=== PATIENT | male | born 1940 | race Caucasian/White ===

== ENCOUNTER 2016-02-18 17:18 | Inpatient (IN) | payer MEDICARE, OTHER ==
[2016-02-18] MEDS ORDERED: METHYLPREDNISOLONE 125 MG/2 ML VIAL IV ONE (17:46)
[2016-02-18] MEDS ORDERED: ACETAMINOPHEN 325 MG/TAB TABLET PO ONE (17:46)
[2016-02-18] MEDS ORDERED: Albuterol/Ipratropium Neb 3 ML NEB NEB ONE (17:46)
--- NOTE | 2016-02-18 17:51 | EDPRACDOC ---
- General Information Chief Complaint: Dyspnea/Resp distress Stated Complaint: RESP Time Seen by Provider: 02/18/16 17:31 Information Source: Patient, Shelter, [facility] Mode Of Arrival: Ambulance Allergies/Adverse Reactions: Allergies Allergy/AdvReac Type Severity Reaction Status Date / Time No Known Allergies Allergy Verified 02/18/16 17:59 - History of Present Illness HPI: SHORTNESS OF BREATH ASSOCIATED WITH LOW-GRADE FEVER FOR SEVERAL DAYS AT THE NURSING FACILITY. PROGRESSIVELY GETTING WORSE TODAY REQUIRING EMS TRANSPORT TO THE EMERGENCY DEPARTMENT. - Treatment Prior to ED Arrival Reported Medications/Treatment WEED BURNER Treated With Medication WEED BURNER YES Ibuprofen/Acetaminophen (Dose/ tylenol ?dose at 1600 Time) Solu-Medrol (Dose/Time) 125 mg solumedrol Meds/Treatments Given O2 via Cannula Medications WEED BURNER (Medication/ nebulizer treatments x 4 by EMS (combivent x 1 Dose/Time) and albuterol x 3) EMS Treatment BLS IV Yes Comment wears oxygen at 4 lpm all the time ED Past Medical History - History Reviewed Yes Nurses notes reviewed and agree except as marked - Patient Medical History Cardiac History: Reports: Hypertension, Congestive Heart Failure, Hypercholesterolemia Respiratory History: Reports: COPD (4 L NASAL CANNULA CHRONICALLY) Psychological History: Reports: Anxiety Systemic History: Denies: Cancer, Diabetes - Social Medical History ETOH: None Substance Abuse: None Lives In: [facility] Facility EDM Review of Systems - Review of Systems ROS Negative Except as Marked: Yes All systems reviewed and were negative except as marked ROS Unobtainable: Yes Review of systems cannot be obtained due to the patient's medical condition - Physical Exam Constitutional: Alert, Distress, Restless Oriented to: Person Last recorded Vital Signs: Last Vital Signs Temp 98.5 F 02/18/16 17:34 Pulse 147 H 02/18/16 17:34 Resp 30 H 02/18/16 17:34 BP 91/54 L 02/18/16 17:34 Pulse Ox 95 02/18/16 17:34 Oxygen Pulse Oxygen Saturation 95 O2 Device Nasal Cannula Oxygen Flow Rate 4 Fraction of Inspired Oxygen ( FIO2) - HEENT Head: Normal Nose: No Symptoms Reported Neck: Normal. negative: Edema - Respiratory/Cardiovascular Respiratory: Accessory Muscle Use, Rales, Tachypnea, Other (INCREASED WORK OF BREATHING, SITTING STRAIGHT UPRIGHT, SPEAKS IN BRIEF PHRASES. SIGNIFICANT RESPIRATORY DISTRESS) Cardiovascular: Tachycardia - GI Auscultation: Normal Palpation: Normal Tenderness: Non tender Estrada's Sign: Negative - Musculoskeletal Back: Normal Extremities: Normal, Pedal Pulse (1+ BILATERAL DORSALIS PEDIS). negative: Pedal Edema - Integumentary Skin: Warm, Diaphoretic - Neurologic Motor Function: Other (GROSSLY MOVES ALL 4 EXTREMITIES) Mood Description: Anxious Thought: negative: Coherent ED SOB MDM - Re-evaluation Re-evaluation 3 Re-evaluation Time: 19:24 (IMPROVED, OFF BI[PAP, ABLE TO SPEAK FULL SENTENCES) - Results Result Diagrams: 02/18/16 18:25 02/18/16 18:25 - EKG EKG #1 EKG Time: 17:55 -: Yes EKG interpreted by me Rate: bpm: 139 [place]: Normal Rhythm: ST Block: None Hypertrophy: None ST: Nonsp - Diagnostic Imaging Chest Image interpreted by: Radiologist Diagnostic Imaging Comments: Patient Name: MILENA ECHAVARRIA LOC: ED : 1940 AGE: 75 Order Date:02/18/16 Date of Service:09/26 Report # [id number] Ord Physician: Amy Ring MD Exam # [id number] Emergency Physician: Amy Ring MD Exam(s): [id number] RAD/DG CHEST PORTABLE CLINICAL DATA: Sepsis. Shortness of breath with fever. Symptoms for days, progressive worsening. EXAM: PORTABLE CHEST 1 VIEW COMPARISON: Radiographs 09/12/2015, chest CT 09/15/2015 FINDINGS: Lungs remain hyperinflated with emphysema. Irregular nodular opacity in the left upper lung zone corresponding to nodules on CT again seen. The heart size and mediastinal contours are unchanged with atherosclerosis of the thoracic aorta. No confluent airspace disease, pleural effusion or pneumothorax. No new nodules are seen radiographically. No pulmonary edema. No acute osseous abnormalities are seen. IMPRESSION: 1. Emphysema and left upper lobe nodule. This is grossly unchanged from prior exam. 2. No evidence of superimposed acute process. Electronically Signed By: Sara Rosen M.D. On: 02/18/2016 18:15 Electronically Signed By: Sara Rosen MD Electronically Signed Date/Time: [id number] Dictate Date/Time: 02/18/16 181 Technologist: Aye Cheema Transcribed By: Boom Transcribed Date/Time: 02/18/161814 ED Critical Care Note - Critical Care Note Total Time (mins): 35 Comments: Due to the presence of and / or the risk of deterioration, my attendance to this patient required critical care time, including assessment/reassessment, documentation, ordering and interpreting ancillary studies, discussion with ED staff and consultants,patient and family, and excludes time spent on separately billable procedures. - Departure Disposition: Admit IP To This Hospital Condition: Stable Final Diagnosis: COPD with acute lower respiratory infection, Respiratory distress Instructions: COPD (Chronic Obstructive Pulmonary Disease) (ED) Education/Counseling Given To: Patient Education/Counseling Given Regarding: Diagnosis, Treatment, Prognosis Referrals: Iker Lacey MD [Primary Care Provider] - As Needed Decision to Admit Time: 19:24 Decision to admit date: 02/18/16 Decision to admit: from ED - Physician Consulted Hospitalist Time Called: 19:17 Provider Called: Roman Villafana Time Bilingual Speech Language Pathologist Returned Call: 19:23
[2016-02-18 18:03] LABS: ALLEN'S TEST PASS; BEb -0.2 (+/- 2); TCO2 27.3 MMOL/L (23-27)
[2016-02-18 18:04] LABS: ABG Draw Site Left Radial
--- NOTE | 2016-02-18 18:17 | DIRPT ---
CLINICAL DATA: Sepsis. Shortness of breath with fever. Symptoms for days, progressive worsening. EXAM: PORTABLE CHEST 1 VIEW COMPARISON: Radiographs 09/12/2015, chest CT 09/15/2015 FINDINGS: Lungs remain hyperinflated with emphysema. Irregular nodular opacity in the left upper lung zone corresponding to nodules on CT again seen. The heart size and mediastinal contours are unchanged with atherosclerosis of the thoracic aorta. No confluent airspace disease, pleural effusion or pneumothorax. No new nodules are seen radiographically. No pulmonary edema. No acute osseous abnormalities are seen. IMPRESSION: 1. Emphysema and left upper lobe nodule. This is grossly unchanged from prior exam. 2. No evidence of superimposed acute process. Electronically Signed By: Sara Rosen M.D. On: 02/18/2016 18:15
[2016-02-18 18:38] LABS: AUTOMATED BASOPHIL 1.1 % (0-2); AUTOMATED EOSINOPHIL 0.4 % (0-5); AUTOMATED LYMPH 11.7 % (17-44); AUTOMATED MONOCYTE 6.3 % (3-10); AUTOMATED NEUTROPHIL 80.5 % (45-76); MPV 7.8 fL (7.4-10.4)
[2016-02-18 18:48] LABS: BLOOD UREA NITROGEN 19 MG/DL (9-20); CALC CORRECTED 9.5 MG/DL (8.4-10.2); CALCIUM 9.3 MG/DL (8.4-10.2); CALCULATED OSMOLALITY 282 MOs/Kg (270-290); CHLORIDE 105 mEq/L (98-107); GLUCOSE 183 MG/DL (70-99); PT-INR 1.3; SODIUM LEVEL 143 mEq/L (137-146); TOTAL PROTEIN 7.5 G/DL (6.3-8.2)
[2016-02-18] MEDS ORDERED: LORAZEPAM 2 MG/ML VIAL IV ONE (18:48)
[2016-02-18 19:10] LABS: CPK TOTAL WITH POSSIBLE MB 70 IU/L (55-170)
[2016-02-18] MEDS ORDERED: Levofloxacin 750 mg/150 ml D5W 750 MG/150 ML RTU IV ONE (19:17)
[2016-02-18] MEDS ORDERED: DEXTROSE 25 GM/50 ML PFS IV PRN (19:40)
[2016-02-18] MEDS ORDERED: GLUCOSE (ORAL GEL) 15 GM TUBE PO PRN (19:40)
[2016-02-18] MEDS ORDERED: TUSSIONEX 5 ML ORAL SYRINGE PO PRN (19:40)
[2016-02-18] MEDS ORDERED: ONDANSETRON HCL 4 MG/2 ML VIAL IV PRN (19:40)
[2016-02-18] MEDS ORDERED: PROMETHAZINE 25 MG/ML VIAL IV PRN (19:40)
[2016-02-18] MEDS ORDERED: ALBUTEROL 0.083% 3 ML NEB NEB PRN (19:40)
[2016-02-18] MEDS ORDERED: SENNA CONCENTRATE TAB PO PRN (19:40)
[2016-02-18] MEDS ORDERED: ACETAMINOPHEN 325 MG SUPP PR PRN (19:40)
[2016-02-18] MEDS ORDERED: GLUCAGON 1 MG VIAL SQ PRN (19:40)
[2016-02-18] MEDS ORDERED: BISACODYL 10 MG SUPP PR PRN (19:40)
--- NOTE | 2016-02-18 19:40 | HISTPHYS ---
- Chief Complaint Increased shortness breath with low-grade fever over the past several days at [facility]. - History of Present Illness Patient is an interesting 75-year-old white male who was hospitalized [facility] about 6 weeks ago for COPD exacerbation and was too weak to go home so was sent to [facility] to help him recuperate. He indicates that he became more short of breath over the past 3 days at that facility with increased cough and congestion in his chest. He uses O2 at a rate of 4 liters/ minute continuously. Apparently he is taking Eliquis but he is not sure why. He has a history of diabetes mellitus COPD/emphysema from tobacco abuse congestive heart failure which appears to be diastolic in nature hypercholesterolemia and sciatica. He indicates that he is not enjoying [facility] the [facility]. We discussed code status and indicated to me that he wanted DNR status and specifically not to do chest compressions or put him on life support. - Medical History Cardiac History: Reports: Hypertension, Congestive Heart Failure, Hypercholesterolemia Respiratory History: Reports: COPD (4 L NASAL CANNULA CHRONICALLY) GI/ History: Reports: No Significant History Systemic History: Denies: Cancer, Diabetes Neurological History: Reports: No Significant History Psychological History: Reports: Anxiety - Surgical History Reports: Other (Skin cancer on chest and bilateral lens implants) - Medictions/Allergies Allergies No Known Allergies Allergy (Verified 02/18/16 17:59) Current Medication List: Reviewed - Family History Reports: Cardiac Disorders (Both parents of MIs) - Social History Travel Outside of [place] in the Last 3 Months?: No Lives: in [facility]NF ([facility] Dr. Dunham when discharged Dr. Bravo) Smoking Status: Former smoker (Claims to quit smoking 6.5 years ago) Social History: Denies: Alcohol Use, Substance Use Disorder - Review of Systems Constitutional: Chills, Fever, Fatigue, Weakness Eyes: No Symptoms Reported (No blurry vision, visual changes, eye pain, or eye redness.) Ears: No Symptoms Reported (No ear pain or discharge) Nose: No Symptoms Reported (No nasal discharge/congestion or bleeding) Mouth: No Symptoms Reported (No oropharyngeal lesions or erythema) Throat/Neck: No Symptoms Reported (No throat pain or swelling.No oropharyngeal lesions or erythema.) Respiratory: Cough (Past 3 nights), Shortness of Breath (Past 3 nights), Wheezing, Other (History COPD/emphysema) Cardiovascular: No Symptoms Reported (No chest pain or palpitations.) Gastrointestinal: No Symptoms Reported (No abdominal pain, nausea, vomiting, diarrhea, constipation, or bloody stool.) Genitourinary: No Symptoms Reported (No dysuria or hematuria.) Neurological: Weakness Musculoskeletal:: Chronic low back pain, Arthritis Integumentary: Other (Multiple skin cancers removed in the past) Allergic/Immunologic: No Symptoms Reported (no rashes or lesions) Hematologic: No Symptoms Reported (No chronic anemia, bleeding, or easy bruising.), Other (Lymphatics- no lymph node swelling or pain.) Endocrine: Diabetes Psychiatric: Depression - Physical Exam Vital Signs: Initial Vitals Temperature 98.5 F 02/18/16 17:34 Pulse Rate 147 H 02/18/16 17:34 Respiratory Rate 30 H 02/18/16 17:34 Blood Pressure 91/54 L 02/18/16 17:34 Pulse Oxygen Saturation 95 02/18/16 17:34 Constitutional: Alert (Awake, Fully oriented. Normal and appropriate affect.Well appearing. Well nourished.), No apparent distress Oriented to: Person, Place - HEENT Head: Normal (normocephalic, atraumatic.), Other (No cervical lymphadenopathy. No supraclavicular lymphadenopathy. Neck: No palpable mass, supple , trachea midline.) Eye: Normal (pupils equal, reactive to light, and round; EOMI, Sclera white) Oropharynx: Normal (Pharynx: Moist without exudate,Gums-no swelling, No oropharyngeal lesions or erythema, Mucous membranes are dry.) ENT EAC: Normal (No oropharyngeal lesions or erythema. Mucous membranes are dry. ) TMJ: Normal Nose: No Symptoms Reported (septum midline, Nares patent, without discharge or bleeding.) Respiratory: Normal - CTA (Clear to auscultation bilaterally. No wheezing, rales , rhonchi. Chest wall movements are symmetric. No use of accessory muscles to breathe.) Cardiovascular: Normal (RRR , Normal S1, S2. No murmurs, rubs, or gallops. PMI non-displaced. Carotids: no carotid bruits. No bradycardia or tachycardia. DP pulses 2+ bilaterally.) - GI Auscultation: Normal (normal active sounds) Palpation: Normal (Soft,non distended,nontender. No hepatosplenomegaly.) Tenderness: Non tender (No rebound or guarding) Estrada's Sign: Negative - Musculoskeletal Back: Normal (Non-Tender) Extremities: Normal (Normal tone, DP pulses 2+ bilaterally, No cyanosis or edema bilaterally, FROM bilaterally.) Spine: non-tender, normal alignment, other (Mildly kyphotic) - Integumentary Skin: Other (Scarring of the mid sternal region from previous skin cancer surgery) Lymphatics: Normal (No cervical lymphadenopathy. No supraclavicular lymphadenopathy.) - Neurologic Memory Impaired: Normal Motor Function: Normal (Motor 5/5 throughout.Normal tone, Pulses 2+ No cyanosis or edema, FROM) Cranial Nerve: Normal (CN II-XII intact sensation, strength 5/5) Cerebellar: negative: Ataxia, Past-Pointing, Tremor Mood Description: Normal (Fully oriented. Normal and appropriate affect.) Thought: Coherent Perception: Normal - Focused CV Perfusion Exam Vital Signs: Last Vital Signs Temp 98.5 F 02/18/16 17:34 Pulse 147 H 02/18/16 17:34 Resp 32 H 02/18/16 18:09 BP 91/54 L 02/18/16 17:34 Pulse Ox 94 02/18/16 18:09 - Lab Results 02/18/16 18:25 02/18/16 18:25 Laboratory Results - last 24 hr 02/18/16 02/18/16 02/18/16 17:55 18:25 18:25 WBC RBC Hgb Hct MCV MCH MCHC RDW Plt Count MPV Neut % (Auto) Lymph % (Auto) [place] % (Auto) Eos % (Auto) Baso % (Auto) Absolute Neuts (auto) Absolute Lymphs (auto) PT INR APTT Puncture Site Left radial pH 7.350 pCO2 47.0 H pO2 71.0 L HCO3 25.9 Total CO2 27.3 H Base Excess -0.2 FiO2 % 4 lpm Specimen Drawn By Stana Sodium 143 Potassium 4.5 Chloride 105 Carbon Dioxide 26 Anion Gap 17 H BUN 19 Creatinine 1.10 Estimated GFR (MDRD) > 60 Glucose 183 H Hemoglobin A1c Calculated Osmolality 282 Lactic Acid 1.5 Calcium 9.3 Corrected Calcium 9.5 Total Bilirubin 1.2 AST 23 ALT 25 Alkaline Phosphatase 135 Creatine Kinase 70 Troponin I 0.29 [id number]-Dchyhemqwbr Pept 1550 H Total Protein 7.5 Albumin 3.8 TSH Urine Color Urine Clarity Urine pH Ur Specific [place] Urine Protein Urine Glucose (UA) Urine Ketones Urine Occult Blood Urine Nitrite Urine Bilirubin Urine Urobilinogen Ur Leukocyte Esterase Urine RBC Urine WBC Ur Epithelial Cells Urine Bacteria Hyaline Casts Urine Mucus 02/18/16 02/18/16 02/18/16 18:25 18:25 18:25 WBC 12.3 H RBC 4.38 L Hgb 12.4 L Hct 38.2 L MCV 87 MCH 28.4 MCHC 32.6 L RDW 15.2 H Plt Count 376 MPV 7.8 Neut % (Auto) 80.5 H Lymph % (Auto) 11.7 L [place] % (Auto) 6.3 Eos % (Auto) 0.4 Baso % (Auto) 1.1 Absolute Neuts (auto) 9.84 H Absolute Lymphs (auto) 1.35 PT 13.2 H INR 1.3 APTT 42.0 H Puncture Site pH pCO2 pO2 HCO3 Total CO2 Base Excess FiO2 % Specimen Drawn By Sodium Potassium Chloride Carbon Dioxide Anion Gap BUN Creatinine Estimated GFR (MDRD) Glucose Hemoglobin A1c 6.1 H Calculated Osmolality Lactic Acid Calcium Corrected Calcium Total Bilirubin AST ALT Alkaline Phosphatase Creatine Kinase Troponin I [id number] Pept Total Protein Albumin TSH Urine Color Urine Clarity Urine pH Ur Specific [place] Urine Protein Urine Glucose (UA) Urine Ketones Urine Occult Blood Urine Nitrite Urine Bilirubin Urine Urobilinogen Ur Leukocyte Esterase Urine RBC Urine WBC Ur Epithelial Cells Urine Bacteria Hyaline Casts Urine Mucus 02/18/16 02/18/16 02/18/16 18:25 21:30 23:50 WBC RBC Hgb Hct MCV MCH MCHC RDW Plt Count MPV Neut % (Auto) Lymph % (Auto) [place] % (Auto) Eos % (Auto) Baso % (Auto) Absolute Neuts (auto) Absolute Lymphs (auto) PT INR APTT Puncture Site pH pCO2 pO2 HCO3 Total CO2 Base Excess FiO2 % Specimen Drawn By Sodium Potassium Chloride Carbon Dioxide Anion Gap BUN Creatinine Estimated GFR (MDRD) Glucose Hemoglobin A1c Calculated Osmolality Lactic Acid Calcium Corrected Calcium Total Bilirubin AST ALT Alkaline Phosphatase Creatine Kinase Troponin I 0.27 [id number]-Svvyjouzyey Pept Total Protein Albumin TSH 0.49 L Urine Color Shandra Urine Clarity Sl cldy Urine pH 6.0 Ur Specific [place] >/=1.035 Urine Protein 2+ H Urine Glucose (UA) 1+ Urine Ketones 1+ H Urine Occult Blood Neg Urine Nitrite Neg Urine Bilirubin Neg Urine Urobilinogen 2 H Ur Leukocyte Esterase Neg Urine RBC 5-10 H Urine WBC 5-10 H Ur Epithelial Cells Occ Urine Bacteria Few Hyaline Casts Tntc H Urine Mucus Large - Assessment (1) COPD with acute lower respiratory infection J44.0 - CHRONIC OBSTRUCTIVE PULMON DISEASE W ACUTE LOWER RESP INFCT Acute Present on Admission: Yes (2) Diastolic CHF I50.30 - UNSPECIFIED DIASTOLIC (CONGESTIVE) HEART FAILURE Acute Present on Admission: Yes Qualifiers: Congestive heart failure chronicity: chronic Qualified Code(s): I50.32 - Chronic diastolic (congestive) heart failure (3) Diabetes mellitus E11.9 - TYPE 2 DIABETES MELLITUS WITHOUT COMPLICATIONS Chronic Present on Admission: Yes Qualifiers: Diabetes mellitus type: type 2 Diabetes mellitus complication status: without complication Diabetes mellitus snf insulin use: without snf use Qualified Code(s): E11.9 - Type 2 diabetes mellitus without complications Sliding scale insulin therapy glycohemoglobin is 6.1 and urine microalbumin is pending. (4) Emphysema lung J43.9 - EMPHYSEMA, UNSPECIFIED Acute Present on Admission: Yes Qualifiers: Emphysema type: centrilobular Qualified Code(s): J43.2 - Centrilobular emphysema (5) On anticoagulant therapy Z79.01 - SECURITIES ADVISER (CURRENT) USE OF ANTICOAGULANTS Acute Present on Admission: Yes Patient presently taking Eliquis and is and sinus rhythm. Need his old records he is unable to tell me why he is taking the anticoagulant. Case Care Discussed with: Patient, Nursing Staff Total Time: 63 min Critical Care: No Code: [id number]
[2016-02-18] MEDS ORDERED: ENOXAPARIN 40 MG/0.4 ML PFS SQ SCH (20:00)
[2016-02-18] MEDS ORDERED: NS/KCl 20 mEq 1,000 ML IV SCH (20:00)
[2016-02-18] MEDS: Albuterol/Ipratropium Neb 3 ML NEB NEB SCH (20:07)
[2016-02-18 21:09] VITALS: BMI 24.0
[2016-02-18] MEDS: CEFTRIAXONE 1 GM in D5W 100 ML IV SCH (21:13)
[2016-02-18] MEDS: PROBIOTIC BLEND TAB PO SCH (21:14)
[2016-02-18] MEDS: METHYLPREDNISOLONE 125 MG/2 ML VIAL IV SCH (21:14)
[2016-02-18] MEDS: BENZONATATE 100 MG PERLES PO SCH ×2 (21:14→21:19)
[2016-02-18] MEDS ORDERED: CHAPSTICK LIP BALM ONE (21:34)
[2016-02-18] MEDS ORDERED: Vaccine Screening Complete SCH (23:00)
[2016-02-18] MEDS: AZITHROMYCIN 500 MG in D5W 250 ML IV SCH (23:01)
[2016-02-18] MEDS ORDERED: LORAZEPAM 2 MG/ML VIAL IV PRN (23:15)
[2016-02-18] MEDS: LORAZEPAM 2 MG/ML VIAL IV PRN (23:47)
[2016-02-19 00:47] LABS: LEUKOCYTES/URINE NEG (NEGATIVE); NITRITE/URINE NEG (NEGATIVE); URINE OCCULT BLOOD NEG (NEG/TRACE)
[2016-02-19] MEDS: Albuterol/Ipratropium Neb 3 ML NEB NEB SCH ×4 (01:35→19:56)
[2016-02-19] MEDS: METHYLPREDNISOLONE 125 MG/2 ML VIAL IV SCH ×4 (01:54→19:38)
[2016-02-19] MEDS: TEMAZEPAM 15 MG CAP PO PRN ×3 (01:54→21:51)
[2016-02-19] MEDS ORDERED: GUAIFENESIN 200 MG/10 ML UDC PO PRN (02:55)
[2016-02-19] MEDS ORDERED: NITROGLYCERINE 0.4 MG TAB SL PRN (02:55)
[2016-02-19] MEDS ORDERED: Docusate Sodium 100 MG CAP PO PRN (02:55)
[2016-02-19 04:22] LABS: ABG Draw Site Right Radial; ALLEN'S TEST PASS; BEb 3.4 (+/- 2); TCO2 29.9 MMOL/L (23-27)
[2016-02-19 04:44] LABS: AUTOMATED BASOPHIL 0.3 % (0-2); AUTOMATED LYMPH 6.9 % (17-44); AUTOMATED MONOCYTE 3.9 % (3-10); AUTOMATED NEUTROPHIL 88.9 % (45-76); MPV 8.1 fL (7.4-10.4)
[2016-02-19 04:59] LABS: BLOOD UREA NITROGEN 20 MG/DL (9-20); CALCIUM 9.2 MG/DL (8.4-10.2); CALCULATED OSMOLALITY 279 MOs/Kg (270-290); CHLORIDE 101 mEq/L (98-107); GLUCOSE 194 MG/DL (70-99); SODIUM LEVEL 141 mEq/L (137-146)
[2016-02-19] MEDS: LORAZEPAM 2 MG/ML VIAL IV PRN (05:02)
[2016-02-19] MEDS: BENZONATATE 100 MG PERLES PO SCH ×3 (05:02→19:37)
[2016-02-19] MEDS: REGULAR INSULIN 100 UNITS/ML - 3 ML VIAL SQ SCH ×2 (06:40→17:52)
[2016-02-19] MEDS: ATORVASTATIN 40 MG TAB PO SCH (07:54)
[2016-02-19] MEDS: BISACODYL 10 MG SUPP PR SCH (07:59)
[2016-02-19] MEDS: BUDESONIDE 0.5 MG NEB NEB SCH ×2 (08:17→20:01)
[2016-02-19] MEDS: NS 500 ML IV ONE ×2 (08:20→09:09)
[2016-02-19] MEDS ORDERED: [UNRECOGNIZED DRUG - OTHER] IH SCH (09:00)
[2016-02-19] MEDS: ACETAMINOPHEN 325 MG/TAB TABLET PO PRN ×2 (09:08→21:51)
[2016-02-19] MEDS ORDERED: NS 1,000 ML IV ONE (12:00)
[2016-02-19] MEDS: PROBIOTIC BLEND TAB PO SCH ×2 (13:46→18:05)
[2016-02-19] MEDS: ALPRAZOLAM 0.5 MG TAB PO PRN (15:28)
--- NOTE | 2016-02-19 17:49 | GENMEDPROG ---
Chief Complaint: Hypotensive. Says breathing is a little bit better but still labored. Denies pain at present Notes Reviewed: Yes Events from last night noted and discussed with Clinical Staff Current Medication List: Reviewed Currently: Reports: Cough, Wheezing, MENDEZ, SOB. Denies: Nausea and Vomiting, Abdominal Pain, Chest Pain DVT Prophylaxis: Yes - Physical Examination Vital Signs and I&O: Last Vital Signs Temp 97.5 F 02/19/16 15:33 Pulse 113 02/19/16 15:33 Resp 18 02/19/16 15:33 BP 92/62 L 02/19/16 15:33 Pulse Ox 91 02/19/16 15:33 Oxygen Pulse Oxygen Saturation 91 O2 Device Nasal Cannula Oxygen Flow Rate 2.5 Fraction of Inspired Oxygen ( FIO2) Intake & Output 02/16/16 02/17/16 02/18/16 02/19/16 23:59 23:59 23:59 23:59 Intake Total 100 530 Output Total 550 Balance 100 -20 Patient's weight 71.894 kg 71.894 kg General: Alert, Oriented x3, Cooperative, Moderate distress. negative: Well appearing (Severely ill appearing) HEENT: Normal, PERRLA, EOMI, Anicteric Sclera Neck: Non-tender, Full range of motion, Normal Trachea alignment. negative: JVD Lymphatics: Normal (No cervical lymphadenopathy. No supraclavicular lymphadenopathy.). negative: Adenopathy Respiratory: Normal - CTA (Clear to auscultation bilaterally. No wheezing, rales , rhonchi. Chest wall movements are symmetric. No use of accessory muscles to breathe.), Diminished, Rales, Rhonchi, Wheezes Cardiovascular: Regular rate and rhythm, No Gallops,Rubs/Murmurs GI: Normal bowel sounds, Soft, Non tender, No hepatospenomegaly, No masses Extremities/Musculoskeletal: Normal pulses. negative: Tenderness, Swelling, Edema Skin: Warm,Dry and Intact, No rashes, No breakdown, No significant lesion Neurological: Normal speech, Strength at 5/5 X4 ext, Normal tone, Cranial nerves 3-12 NL Psych/Mental Status: Appropriate, Cooperative. negative: Normal Affect (Odd) Lab/DI/Studies Reviewed: Laboratory Results - last 24 hr 02/18/16 02/18/16 02/18/16 17:55 18:25 18:25 WBC RBC Hgb Hct MCV MCH MCHC RDW Plt Count MPV Neut % (Auto) Lymph % (Auto) [place] % (Auto) Eos % (Auto) Baso % (Auto) Absolute Neuts (auto) Absolute Lymphs (auto) PT INR APTT Puncture Site Left radial pH 7.350 pCO2 47.0 H pO2 71.0 L HCO3 25.9 Total CO2 27.3 H Base Excess -0.2 FiO2 % 4 lpm Specimen Drawn By Stana Sodium 143 Potassium 4.5 Chloride 105 Carbon Dioxide 26 Anion Gap 17 H BUN 19 Creatinine 1.10 Estimated GFR (MDRD) > 60 Glucose 183 H POC Capillary Glucose Hemoglobin A1c Calculated Osmolality 282 Lactic Acid 1.5 Calcium 9.3 Corrected Calcium 9.5 Total Bilirubin 1.2 AST 23 ALT 25 Alkaline Phosphatase 135 Creatine Kinase 70 Troponin I 0.29 Ttl-B-Jonnicamucs Pept 1550 H Total Protein 7.5 Albumin 3.8 TSH Urine Color Urine Clarity Urine pH Ur Specific [place] Urine Protein Urine Glucose (UA) Urine Ketones Urine Occult Blood Urine Nitrite Urine Bilirubin Urine Urobilinogen Ur Leukocyte Esterase Urine RBC Urine WBC Ur Epithelial Cells Urine Bacteria Hyaline Casts Urine Mucus 02/18/16 02/18/16 02/18/16 18:25 18:25 18:25 WBC 12.3 H RBC 4.38 L Hgb 12.4 L Hct 38.2 L MCV 87 MCH 28.4 MCHC 32.6 L RDW 15.2 H Plt Count 376 MPV 7.8 Neut % (Auto) 80.5 H Lymph % (Auto) 11.7 L [place] % (Auto) 6.3 Eos % (Auto) 0.4 Baso % (Auto) 1.1 Absolute Neuts (auto) 9.84 H Absolute Lymphs (auto) 1.35 PT 13.2 H INR 1.3 APTT 42.0 H Puncture Site pH pCO2 pO2 HCO3 Total CO2 Base Excess FiO2 % Specimen Drawn By Sodium Potassium Chloride Carbon Dioxide Anion Gap BUN Creatinine Estimated GFR (MDRD) Glucose POC Capillary Glucose Hemoglobin A1c 6.1 H Calculated Osmolality Lactic Acid Calcium Corrected Calcium Total Bilirubin AST ALT Alkaline Phosphatase Creatine Kinase Troponin I Vvy-W-Thshkpkrhxc Pept Total Protein Albumin TSH Urine Color Urine Clarity Urine pH Ur Specific [place] Urine Protein Urine Glucose (UA) Urine Ketones Urine Occult Blood Urine Nitrite Urine Bilirubin Urine Urobilinogen Ur Leukocyte Esterase Urine RBC Urine WBC Ur Epithelial Cells Urine Bacteria Hyaline Casts Urine Mucus 02/18/16 02/18/16 02/18/16 18:25 21:30 23:50 WBC RBC Hgb Hct MCV MCH MCHC RDW Plt Count MPV Neut % (Auto) Lymph % (Auto) [place] % (Auto) Eos % (Auto) Baso % (Auto) Absolute Neuts (auto) Absolute Lymphs (auto) PT INR APTT Puncture Site pH pCO2 pO2 HCO3 Total CO2 Base Excess FiO2 % Specimen Drawn By Sodium Potassium Chloride Carbon Dioxide Anion Gap BUN Creatinine Estimated GFR (MDRD) Glucose POC Capillary Glucose Hemoglobin A1c Calculated Osmolality Lactic Acid Calcium Corrected Calcium Total Bilirubin AST ALT Alkaline Phosphatase Creatine Kinase Troponin I 0.27 Qzb-L-Jlryeunxdhv Pept Total Protein Albumin TSH 0.49 L Urine Color Shandra Urine Clarity Sl cldy Urine pH 6.0 Ur Specific [place] >/=1.035 Urine Protein 2+ H Urine Glucose (UA) 1+ Urine Ketones 1+ H Urine Occult Blood Neg Urine Nitrite Neg Urine Bilirubin Neg Urine Urobilinogen 2 H Ur Leukocyte Esterase Neg Urine RBC 5-10 H Urine WBC 5-10 H Ur Epithelial Cells Occ Urine Bacteria Few Hyaline Casts Tntc H Urine Mucus Large 02/19/16 02/19/16 02/19/16 04:05 04:05 04:15 WBC 9.0 RBC 4.08 L Hgb 11.4 L Hct 35.3 L MCV 87 MCH 28.1 MCHC 32.4 L RDW 15.2 H Plt Count 328 MPV 8.1 Neut % (Auto) 88.9 H Lymph % (Auto) 6.9 L [place] % (Auto) 3.9 Eos % (Auto) 0.0 Baso % (Auto) 0.3 Absolute Neuts (auto) 7.92 Absolute Lymphs (auto) 0.54 L PT INR APTT Puncture Site Right radial pH 7.420 pCO2 44.0 pO2 83.0 HCO3 28.5 H Total CO2 29.9 H Base Excess 3.4 H FiO2 % 3l nc Specimen Drawn By Baras Sodium 141 Potassium 4.5 Chloride 101 Carbon Dioxide 29 Anion Gap 16 BUN 20 Creatinine 1.00 Estimated GFR (MDRD) > 60 Glucose 194 H POC Capillary Glucose Hemoglobin A1c Calculated Osmolality 279 Lactic Acid Calcium 9.2 Corrected Calcium Total Bilirubin AST ALT Alkaline Phosphatase Creatine Kinase Troponin I Rzl-K-Ckqakhyquwe Pept Total Protein Albumin TSH Urine Color Urine Clarity Urine pH Ur Specific [place] Urine Protein Urine Glucose (UA) Urine Ketones Urine Occult Blood Urine Nitrite Urine Bilirubin Urine Urobilinogen Ur Leukocyte Esterase Urine RBC Urine WBC Ur Epithelial Cells Urine Bacteria Hyaline Casts Urine Mucus 02/19/16 02/19/16 05:54 08:01 WBC RBC Hgb Hct MCV MCH MCHC RDW Plt Count MPV Neut % (Auto) Lymph % (Auto) [place] % (Auto) Eos % (Auto) Baso % (Auto) Absolute Neuts (auto) Absolute Lymphs (auto) PT INR APTT Puncture Site pH pCO2 pO2 HCO3 Total CO2 Base Excess FiO2 % Specimen Drawn By Sodium Potassium Chloride Carbon Dioxide Anion Gap BUN Creatinine Estimated GFR (MDRD) Glucose POC Capillary Glucose 166 H 139 H Hemoglobin A1c Calculated Osmolality Lactic Acid Calcium Corrected Calcium Total Bilirubin AST ALT Alkaline Phosphatase Creatine Kinase Troponin I Tqv-O-Auncdrpgcye Pept Total Protein Albumin TSH Urine Color Urine Clarity Urine pH Ur Specific [place] Urine Protein Urine Glucose (UA) Urine Ketones Urine Occult Blood Urine Nitrite Urine Bilirubin Urine Urobilinogen Ur Leukocyte Esterase Urine RBC Urine WBC Ur Epithelial Cells Urine Bacteria Hyaline Casts Urine Mucus - Assessment (1) COPD with acute lower respiratory infection Acute J44.0 - CHRONIC OBSTRUCTIVE PULMON DISEASE W ACUTE LOWER RESP INFCT Comment/Plan: Remains acutely ill. IV steroids, IV antibiotics, nebulizer treatments and pulmonary toilet. (2) Diastolic CHF Acute I50.30 - UNSPECIFIED DIASTOLIC (CONGESTIVE) HEART FAILURE Qualifiers: Congestive heart failure chronicity: chronic Qualified Code(s): I50.32 - Chronic diastolic (congestive) heart failure Comment/Plan: Appears dry currently. He is hypotensive. Hold any blood pressure medicines and gently hydrate. (3) Emphysema lung Acute J43.9 - EMPHYSEMA, UNSPECIFIED Qualifiers: Emphysema type: centrilobular Qualified Code(s): J43.2 - Centrilobular emphysema Comment/Plan: As above for COPD. IV steroids, IV antibiotics and nebulizer treatments. (4) On anticoagulant therapy Acute Z79.01 - RETIREMENT (CURRENT) USE OF ANTICOAGULANTS Comment/Plan: Patient presently taking Eliquis and is and sinus rhythm. Need his old records he is unable to tell me why he is taking the anticoagulant. (5) Diabetes mellitus Chronic E11.9 - TYPE 2 DIABETES MELLITUS WITHOUT COMPLICATIONS Qualifiers: Diabetes mellitus type: type 2 Diabetes mellitus complication status: without complication Diabetes mellitus nursing home insulin use: without terminal superintendent use Qualified Code(s): E11.9 - Type 2 diabetes mellitus without complications Comment/Plan: Accu-Cheks and sliding scale insulin. Case Care Discussed with: Patient, Nursing Staff, Resource Management
[2016-02-19] MEDS: NS/KCl 20 mEq 1,000 ML IV SCH (18:04)
[2016-02-19] MEDS: APIXABAN 5 MG TABLET PO SCH (19:37)
[2016-02-19] MEDS: QUETIAPINE FUMARATE 25 MG TAB PO SCH (19:37)
[2016-02-19] MEDS: CEFTRIAXONE 1 GM in D5W 100 ML IV SCH (19:37)
[2016-02-19] MEDS: AZITHROMYCIN 500 MG in D5W 250 ML IV SCH (21:51)
[2016-02-20] MEDS: Albuterol/Ipratropium Neb 3 ML NEB NEB SCH ×4 (02:21→20:31)
[2016-02-20] MEDS: METHYLPREDNISOLONE 125 MG/2 ML VIAL IV SCH ×5 (02:54→20:03)
[2016-02-20 04:28] LABS: BLOOD UREA NITROGEN 20 MG/DL (9-20); CALCIUM 8.7 MG/DL (8.4-10.2); CALCULATED OSMOLALITY 283 MOs/Kg (270-290); CHLORIDE 111 mEq/L (98-107); GLUCOSE 161 MG/DL (70-99); SODIUM LEVEL 144 mEq/L (137-146)
[2016-02-20 04:40] LABS: AUTOMATED BASOPHIL 0.2 % (0-2); AUTOMATED MONOCYTE 5.1 % (3-10); AUTOMATED NEUTROPHIL 87.7 % (45-76); MPV 8.4 fL (7.4-10.4)
[2016-02-20] MEDS: BENZONATATE 100 MG PERLES PO SCH ×3 (05:25→21:33)
[2016-02-20] MEDS: NS/KCl 20 mEq 1,000 ML IV SCH ×4 (05:25→22:26)
[2016-02-20 05:38] LABS: ALLEN'S TEST PASS; BEb 1.7 (+/- 2); TCO2 28.6 MMOL/L (23-27)
[2016-02-20 05:39] LABS: ABG Draw Site Right Brachial
[2016-02-20] MEDS: REGULAR INSULIN 100 UNITS/ML - 3 ML VIAL SQ SCH ×2 (06:29→17:51)
[2016-02-20] MEDS: APIXABAN 5 MG TABLET PO SCH ×2 (07:55→20:03)
[2016-02-20] MEDS: ATORVASTATIN 40 MG TAB PO SCH (07:56)
[2016-02-20] MEDS: BISACODYL 10 MG SUPP PR SCH (07:57)
[2016-02-20] MEDS: BUDESONIDE 0.5 MG NEB NEB SCH ×2 (08:23→20:33)
[2016-02-20] MEDS: ALPRAZOLAM 0.5 MG TAB PO PRN ×2 (08:45→15:46)
--- NOTE | 2016-02-20 09:45 | GENMEDPROG ---
Chief Complaint: Feels a little better. Remains very weak. Blood pressures have improved some and remained in the mid 90s. Still with tight wheezing on exam Notes Reviewed: Yes Events from last night noted and discussed with Clinical Staff Current Medication List: Reviewed Currently: Reports: Cough, Wheezing, MENDEZ, SOB. Denies: Nausea and Vomiting, Abdominal Pain, Chest Pain DVT Prophylaxis: Yes - Physical Examination Vital Signs and I&O: Last Vital Signs Temp 97.8 F 02/20/16 07:47 Pulse 108 02/20/16 08:45 Resp 18 02/20/16 07:47 BP 95/65 L 02/20/16 07:47 Pulse Ox 94 02/20/16 08:19 Oxygen Pulse Oxygen Saturation 94 O2 Device Nasal Cannula Oxygen Flow Rate 2.5 Fraction of Inspired Oxygen ( FIO2) Intake & Output 02/17/16 02/18/16 02/19/16 02/20/16 23:59 23:59 23:59 23:59 Intake Total 100 2941 1020 Output Total 750 700 Balance 100 2191 320 Patient's weight 71.894 kg 71.894 kg 72.575 kg General: Alert, Oriented x3, Cooperative, Moderate distress. negative: Well appearing (Severely ill appearing) HEENT: Normal, PERRLA, EOMI, Anicteric Sclera Neck: Non-tender, Full range of motion, Normal Trachea alignment. negative: JVD Lymphatics: Normal (No cervical lymphadenopathy. No supraclavicular lymphadenopathy.). negative: Adenopathy Respiratory: Diminished, Rales, Rhonchi, Wheezes Cardiovascular: Regular rate and rhythm, No Gallops,Rubs/Murmurs GI: Normal bowel sounds, Soft, Non tender, No hepatospenomegaly, No masses Extremities/Musculoskeletal: Normal pulses. negative: Tenderness, Swelling, Edema Skin: Warm,Dry and Intact, No rashes, No breakdown, No significant lesion Neurological: Normal speech, Strength at 5/5 X4 ext, Normal tone, Cranial nerves 3-12 NL Psych/Mental Status: Appropriate, Cooperative. negative: Normal Affect (Odd) Lab/DI/Studies Reviewed: Laboratory Results - last 24 hr 02/19/16 02/20/16 02/20/16 08:01 03:50 03:50 WBC 9.7 RBC 3.42 L Hgb 9.8 L D Hct 29.7 L MCV 87 MCH 28.7 MCHC 33.0 RDW 15.4 H Plt Count 313 MPV 8.4 Neut % (Auto) 87.7 H Lymph % (Auto) 7.0 L [place] % (Auto) 5.1 Eos % (Auto) 0.0 Baso % (Auto) 0.2 Absolute Neuts (auto) 8.44 H Absolute Lymphs (auto) 0.68 Puncture Site pH pCO2 pO2 HCO3 Total CO2 Base Excess FiO2 % Specimen Drawn By Sodium 144 Potassium 4.3 Chloride 111 H Carbon Dioxide 27 Anion Gap 10 BUN 20 Creatinine 0.90 Estimated GFR (MDRD) > 60 Glucose 161 H POC Capillary Glucose 139 H Calculated Osmolality 283 Calcium 8.7 02/20/16 02/20/16 05:35 06:17 WBC RBC Hgb Hct MCV MCH MCHC RDW Plt Count MPV Neut % (Auto) Lymph % (Auto) [place] % (Auto) Eos % (Auto) Baso % (Auto) Absolute Neuts (auto) Absolute Lymphs (auto) Puncture Site Right brachial pH 7.390 pCO2 45.0 pO2 87.0 HCO3 27.2 H Total CO2 28.6 H Base Excess 1.7 FiO2 % 3l nc Specimen Drawn By Daniel Sodium Potassium Chloride Carbon Dioxide Anion Gap BUN Creatinine Estimated GFR (MDRD) Glucose POC Capillary Glucose 135 H Calculated Osmolality Calcium - Assessment (1) COPD with acute lower respiratory infection Acute J44.0 - CHRONIC OBSTRUCTIVE PULMON DISEASE W ACUTE LOWER RESP INFCT Comment/Plan: Remains very ill. Still with significant tight wheezing. Continue high-dose IV steroids, IV antibiotics, nebulizer treatments. (2) Diastolic CHF Acute I50.30 - UNSPECIFIED DIASTOLIC (CONGESTIVE) HEART FAILURE Qualifiers: Congestive heart failure chronicity: chronic Qualified Code(s): I50.32 - Chronic diastolic (congestive) heart failure Comment/Plan: Some better. No worsening of respiratory distress with IV fluids so given relative hypotension would continue IV fluids (3) Emphysema lung Acute J43.9 - EMPHYSEMA, UNSPECIFIED Qualifiers: Emphysema type: centrilobular Qualified Code(s): J43.2 - Centrilobular emphysema Comment/Plan: As above for COPD. IV steroids, IV antibiotics and nebulizer treatments. (4) On anticoagulant therapy Acute Z79.01 - [facility] (CURRENT) USE OF ANTICOAGULANTS Comment/Plan: Patient presently taking Eliquis and is and sinus rhythm. Need his old records he is unable to tell me why he is taking the anticoagulant. (5) Diabetes mellitus Chronic E11.9 - TYPE 2 DIABETES MELLITUS WITHOUT COMPLICATIONS Qualifiers: Diabetes mellitus type: type 2 Diabetes mellitus complication status: without complication Diabetes mellitus penitentiary insulin use: without continuous churn buttermaker use Qualified Code(s): E11.9 - Type 2 diabetes mellitus without complications Comment/Plan: Accu-Cheks and sliding scale insulin. Case Care Discussed with: Patient, Nursing Staff, Physical Therapy, Resource Management, Respiratory Therapy, Tool Mechanic
[2016-02-20] MEDS: ACETAMINOPHEN 325 MG/TAB TABLET PO PRN (12:02)
[2016-02-20] MEDS: PROBIOTIC BLEND TAB PO SCH ×2 (12:03→17:51)
[2016-02-20] MEDS: OXYCODONE HCL 5 MG TABLET PO PRN (17:49)
[2016-02-20] MEDS: TEMAZEPAM 15 MG CAP PO PRN (20:03)
[2016-02-20] MEDS: CEFTRIAXONE 1 GM in D5W 100 ML IV SCH (20:03)
[2016-02-20] MEDS: QUETIAPINE FUMARATE 25 MG TAB PO SCH (20:03)
[2016-02-20] MEDS: AZITHROMYCIN 500 MG in D5W 250 ML IV SCH (22:26)
[2016-02-21] MEDS: Albuterol/Ipratropium Neb 3 ML NEB NEB SCH ×4 (02:24→20:21)
[2016-02-21] MEDS: NS/KCl 20 mEq 1,000 ML IV SCH ×2 (02:45→11:43)
[2016-02-21] MEDS: METHYLPREDNISOLONE 125 MG/2 ML VIAL IV SCH ×4 (02:46→23:36)
[2016-02-21 05:26] LABS: MPV 8.2 fL (7.4-10.4)
[2016-02-21 05:34] LABS: BLOOD UREA NITROGEN 21 MG/DL (9-20); CALCIUM 7.9 MG/DL (8.4-10.2); CALCULATED OSMOLALITY 279 MOs/Kg (270-290); CHLORIDE 110 mEq/L (98-107); GLUCOSE 149 MG/DL (70-99); SODIUM LEVEL 142 mEq/L (137-146)
[2016-02-21] MEDS: BENZONATATE 100 MG PERLES PO SCH ×3 (06:10→20:42)
[2016-02-21] MEDS: REGULAR INSULIN 100 UNITS/ML - 3 ML VIAL SQ SCH ×2 (06:11→17:28)
[2016-02-21 07:20] LABS: SEG NEUTROPHIL 72 % (45-76); TOTAL CELL COUNT 100
[2016-02-21] MEDS: OXYCODONE HCL 5 MG TABLET PO PRN ×2 (07:44→15:17)
[2016-02-21] MEDS: BISACODYL 10 MG SUPP PR SCH (07:45)
[2016-02-21] MEDS: APIXABAN 5 MG TABLET PO SCH ×2 (07:47→20:42)
[2016-02-21] MEDS: ATORVASTATIN 40 MG TAB PO SCH (07:47)
--- NOTE | 2016-02-21 08:19 | GENMEDPROG ---
Chief Complaint: Slowly better. Still wheezing and congested. However he does state feels like he is improving. Denies pain at present Notes Reviewed: Yes Events from last night noted and discussed with Clinical Staff Current Medication List: Reviewed Currently: Reports: Cough, Wheezing, MENDEZ, SOB. Denies: Nausea and Vomiting, Abdominal Pain, Chest Pain DVT Prophylaxis: Yes - Physical Examination Vital Signs and I&O: Last Vital Signs Temp 97.9 F 02/21/16 07:32 Pulse 77 02/21/16 07:32 Resp 18 02/21/16 07:32 BP 89/66 L 02/21/16 07:32 Pulse Ox 98 02/21/16 07:32 Oxygen Pulse Oxygen Saturation 98 O2 Device Nasal Cannula Oxygen Flow Rate 2.5 Fraction of Inspired Oxygen ( FIO2) Intake & Output 02/18/16 02/19/16 02/20/16 02/21/16 23:59 23:59 23:59 23:59 Intake Total 100 2941 3397 1583 Output Total 750 1310 250 Balance 100 2191 2087 1333 Patient's weight 71.894 kg 71.894 kg 72.575 kg 75.568 kg General: Alert, Oriented x3, Cooperative, Mild distress. negative: Well appearing (Severely ill appearing) HEENT: Normal, PERRLA, EOMI, Anicteric Sclera Neck: Non-tender, Full range of motion, Normal Trachea alignment. negative: JVD Lymphatics: Normal (No cervical lymphadenopathy. No supraclavicular lymphadenopathy.). negative: Adenopathy Respiratory: Diminished, Rales, Rhonchi, Wheezes Cardiovascular: Regular rate and rhythm, No Gallops,Rubs/Murmurs GI: Normal bowel sounds, Soft, Non tender, No hepatospenomegaly, No masses Extremities/Musculoskeletal: Normal pulses. negative: Tenderness, Swelling, Edema Skin: Warm,Dry and Intact, No rashes, No breakdown, No significant lesion Neurological: Normal speech, Strength at 5/5 X4 ext, Normal tone, Cranial nerves 3-12 NL Psych/Mental Status: Appropriate, Cooperative. negative: Normal Affect (Odd) Lab/DI/Studies Reviewed: Laboratory Results - last 24 hr 02/18/16 02/20/16 02/21/16 23:50 16:49 04:25 WBC RBC Hgb Hct MCV MCH MCHC RDW Plt Count MPV Neut % (Auto) Lymph % (Auto) [place] % (Auto) Eos % (Auto) Baso % (Auto) Absolute Neuts (auto) Absolute Lymphs (auto) Seg Neuts % (Manual) Band Neutrophils % Lymphocytes % (Manual) Monocytes % (Manual) Absolute Neutrophils Absolute Lymphocytes Platelet Estimate RBC Morphology Sodium 142 Potassium 4.7 Chloride 110 H Carbon Dioxide 25 Anion Gap 12 BUN 21 H Creatinine 0.90 Estimated GFR (MDRD) > 60 Glucose 149 H POC Capillary Glucose 146 H Calculated Osmolality 279 Calcium 7.9 L Ur Random Microalbumin 230.3 02/21/16 02/21/16 04:25 06:11 WBC 9.0 RBC 3.47 L Hgb 9.9 L Hct 30.0 L MCV 87 MCH 28.5 MCHC 33.0 RDW 15.4 H Plt Count 310 MPV 8.2 Neut % (Auto) Cancelled Lymph % (Auto) Cancelled [place] % (Auto) Cancelled Eos % (Auto) Cancelled Baso % (Auto) Cancelled Absolute Neuts (auto) Cancelled Absolute Lymphs (auto) Cancelled Seg Neuts % (Manual) 72 Band Neutrophils % 13 H Lymphocytes % (Manual) 12 L Monocytes % (Manual) 3 Absolute Neutrophils 7.65 Absolute Lymphocytes 1.08 Platelet Estimate Norm RBC Morphology 1+ aniso Sodium Potassium Chloride Carbon Dioxide Anion Gap BUN Creatinine Estimated GFR (MDRD) Glucose POC Capillary Glucose 143 H Calculated Osmolality Calcium Ur Random Microalbumin - Assessment (1) COPD with acute lower respiratory infection Acute J44.0 - CHRONIC OBSTRUCTIVE PULMON DISEASE W ACUTE LOWER RESP INFCT Comment/Plan: Slightly better today. Still with some wheezing but this has improved some. Continue IV steroids, IV antibiotics nebulizer treatments. Encourage activity as tolerated. (2) Diastolic CHF Acute I50.30 - UNSPECIFIED DIASTOLIC (CONGESTIVE) HEART FAILURE Qualifiers: Congestive heart failure chronicity: chronic Qualified Code(s): I50.32 - Chronic diastolic (congestive) heart failure Comment/Plan: Some better. No worsening of respiratory distress with IV fluids so given relative hypotension would continue IV fluids (3) Emphysema lung Acute J43.9 - EMPHYSEMA, UNSPECIFIED Qualifiers: Emphysema type: centrilobular Qualified Code(s): J43.2 - Centrilobular emphysema Comment/Plan: As above for COPD. IV steroids, IV antibiotics and nebulizer treatments. (4) On anticoagulant therapy Acute Z79.01 - ALF (CURRENT) USE OF ANTICOAGULANTS Comment/Plan: Patient presently taking Eliquis and is and sinus rhythm. Need his old records he is unable to tell me why he is taking the anticoagulant. (5) Diabetes mellitus Chronic E11.9 - TYPE 2 DIABETES MELLITUS WITHOUT COMPLICATIONS Qualifiers: Diabetes mellitus type: type 2 Diabetes mellitus complication status: without complication Diabetes mellitus keno terminal operator insulin use: without retirement use Qualified Code(s): E11.9 - Type 2 diabetes mellitus without complications Comment/Plan: Accu-Cheks and sliding scale insulin. Case Care Discussed with: Patient, Nursing Staff, Physical Therapy, Resource Management, Respiratory Therapy, Onshore Diver
[2016-02-21] MEDS: ALPRAZOLAM 0.5 MG TAB PO PRN (08:33)
[2016-02-21] MEDS: BUDESONIDE 0.5 MG NEB NEB SCH ×2 (08:47→20:22)
--- NOTE | 2016-02-21 09:43 | CAPUEKG ---
[place], [place] Test Date: 2016-02-20 Pat Name: MILENA ECHAVARRIA Department: Room: 438 Gender: Male Smoke Room Operator: : Requested By: Order Number: Reading MD: Moises Martinez MD Measurements Intervals [place] Rate: 82 P: 80 [place]: 150 QRS: 52 QRSD: 78 T: 65 QT: 362 QTc: 422 Interpretive Statements Normal sinus rhythm Normal ECG Electronically Signed On 02-21-16 09:42:29 EST by Moises Martinez MD <[email or web address]> [id number]
[2016-02-21] MEDS: PROBIOTIC BLEND TAB PO SCH ×2 (11:39→17:28)
[2016-02-21] MEDS: TEMAZEPAM 15 MG CAP PO PRN ×2 (18:39→20:42)
[2016-02-21] MEDS: Aluminum;Magnesium;Simethicone 30 ML UDC PO PRN (19:21)
[2016-02-21] MEDS: CEFTRIAXONE 1 GM in D5W 100 ML IV SCH (19:22)
[2016-02-21] MEDS: AZITHROMYCIN 250 MG TAB PO SCH (20:42)
[2016-02-21] MEDS: QUETIAPINE FUMARATE 25 MG TAB PO SCH (20:42)
[2016-02-22] MEDS: Albuterol/Ipratropium Neb 3 ML NEB NEB SCH ×4 (02:02→21:13)
[2016-02-22 05:24] LABS: MPV 8.5 fL (7.4-10.4)
[2016-02-22 05:33] LABS: BLOOD UREA NITROGEN 21 MG/DL (9-20); CALCIUM 8.1 MG/DL (8.4-10.2); CALCULATED OSMOLALITY 280 MOs/Kg (270-290); CHLORIDE 109 mEq/L (98-107); GLUCOSE 140 MG/DL (70-99); SODIUM LEVEL 143 mEq/L (137-146)
[2016-02-22 06:02] LABS: SEG NEUTROPHIL 84 % (45-76)
[2016-02-22 06:03] LABS: TOTAL CELL COUNT 100
[2016-02-22] MEDS: REGULAR INSULIN 100 UNITS/ML - 3 ML VIAL SQ SCH ×2 (06:08→17:26)
[2016-02-22] MEDS: BENZONATATE 100 MG PERLES PO SCH ×3 (06:16→20:12)
[2016-02-22] MEDS: NS/KCl 20 mEq 1,000 ML IV SCH ×2 (06:16→08:37)
[2016-02-22] MEDS: BUDESONIDE 0.5 MG NEB NEB SCH ×2 (08:01→21:17)
[2016-02-22] MEDS: ALPRAZOLAM 0.5 MG TAB PO PRN ×2 (08:24→15:11)
[2016-02-22] MEDS: ATORVASTATIN 40 MG TAB PO SCH (08:25)
[2016-02-22] MEDS: APIXABAN 5 MG TABLET PO SCH ×2 (08:25→20:12)
[2016-02-22] MEDS: BISACODYL 10 MG SUPP PR SCH (08:27)
[2016-02-22] MEDS: METHYLPREDNISOLONE 125 MG/2 ML VIAL IV SCH (08:27)
[2016-02-22] MEDS ORDERED: GUAIFENESIN 200 MG/10 ML UDC PO PRN (10:39)
[2016-02-22] MEDS ORDERED: MAGNESIUM HYDROXIDE 30 ML BOTTLE PO PRN (10:39)
[2016-02-22] MEDS ORDERED: NITROGLYCERINE 0.4 MG TAB SL PRN (10:39)
[2016-02-22] MEDS ORDERED: Non-Formulary Medication ITEM (Magnesium Hydroxide/Al Hydrox [Mylanta Liquid] 30 ML) PO PRN (10:39)
--- NOTE | 2016-02-22 10:44 | GENMEDPROG ---
Chief Complaint: LESS SOB LESS WHEEZING WALKING 30 FT YESTERDAY WALKER Notes Reviewed: Yes Events from last night noted and discussed with Clinical Staff Current Medication List: Reviewed Currently: Reports: Cough, Wheezing, MENDEZ, SOB. Denies: Nausea and Vomiting, Abdominal Pain, Chest Pain DVT Prophylaxis: Yes - Physical Examination Vital Signs and I&O: Last Vital Signs Temp 97.5 F 02/22/16 07:49 Pulse 93 02/22/16 10:36 Resp 18 02/22/16 07:49 BP 110/73 02/22/16 07:49 Pulse Ox 96 02/22/16 07:52 Oxygen Pulse Oxygen Saturation 96 O2 Device Nasal Cannula Oxygen Flow Rate 3 Fraction of Inspired Oxygen ( FIO2) Intake & Output 02/19/16 02/20/16 02/21/16 02/22/16 23:59 23:59 23:59 23:59 Intake Total 2941 3397 3539 895 Output Total 750 1310 1860 300 Balance 2191 2087 1679 595 Patient's weight 71.894 kg 72.575 kg 75.568 kg 76.232 kg General: Alert, Oriented x3, Cooperative, Mild distress. negative: Well appearing (Severely ill appearing) HEENT: Normal, PERRLA, EOMI, Anicteric Sclera Neck: Non-tender, Full range of motion, Normal Trachea alignment. negative: JVD Lymphatics: Normal (No cervical lymphadenopathy. No supraclavicular lymphadenopathy.). negative: Adenopathy Respiratory: Diminished, Rales, Rhonchi, Wheezes Cardiovascular: Regular rate and rhythm, No Gallops,Rubs/Murmurs GI: Normal bowel sounds, Soft, Non tender, No hepatospenomegaly, No masses Extremities/Musculoskeletal: Normal pulses. negative: Tenderness, Swelling, Edema Skin: Warm,Dry and Intact, No rashes, No breakdown, No significant lesion Neurological: Normal speech, Strength at 5/5 X4 ext, Normal tone, Cranial nerves 3-12 NL Psych/Mental Status: Appropriate, Cooperative. negative: Normal Affect (Odd) Lab/DI/Studies Reviewed: 02/22/16 04:20 02/22/16 04:20 Laboratory Results - last 24 hr 02/21/16 02/22/16 02/22/16 18:27 04:20 04:20 WBC 11.5 H RBC 3.62 L Hgb 10.2 L Hct 31.6 L MCV 87 MCH 28.2 MCHC 32.3 L RDW 15.3 H Plt Count 300 MPV 8.5 Neut % (Auto) Cancelled Lymph % (Auto) Cancelled [place] % (Auto) Cancelled Eos % (Auto) Cancelled Baso % (Auto) Cancelled Absolute Neuts (auto) Cancelled Absolute Lymphs (auto) Cancelled Seg Neuts % (Manual) 84 H Band Neutrophils % 3 Lymphocytes % (Manual) 7 L Monocytes % (Manual) 5 Metamyelocytes % 1 H Absolute Neutrophils 10.01 H Absolute Lymphocytes 0.81 Platelet Estimate Norm RBC Morphology 1+ poik Sodium 143 Potassium 4.8 Chloride 109 H Carbon Dioxide 28 Anion Gap 11 BUN 21 H Creatinine 0.80 Estimated GFR (MDRD) > 60 Glucose 140 H POC Capillary Glucose 151 H Calculated Osmolality 280 Calcium 8.1 L 02/22/16 05:10 WBC RBC Hgb Hct MCV MCH MCHC RDW Plt Count MPV Neut % (Auto) Lymph % (Auto) [place] % (Auto) Eos % (Auto) Baso % (Auto) Absolute Neuts (auto) Absolute Lymphs (auto) Seg Neuts % (Manual) Band Neutrophils % Lymphocytes % (Manual) Monocytes % (Manual) Metamyelocytes % Absolute Neutrophils Absolute Lymphocytes Platelet Estimate RBC Morphology Sodium Potassium Chloride Carbon Dioxide Anion Gap BUN Creatinine Estimated GFR (MDRD) Glucose POC Capillary Glucose 141 H Calculated Osmolality Calcium - Assessment (1) COPD with acute lower respiratory infection Acute J44.0 - CHRONIC OBSTRUCTIVE PULMON DISEASE W ACUTE LOWER RESP INFCT Comment/Plan: Slightly better today. Still with some wheezing but this has improved some. Continue IV steroids, IV antibiotics nebulizer treatments. Encourage activity as tolerated. (2) Diastolic CHF Acute I50.30 - UNSPECIFIED DIASTOLIC (CONGESTIVE) HEART FAILURE Qualifiers: Congestive heart failure chronicity: chronic Qualified Code(s): I50.32 - Chronic diastolic (congestive) heart failure Comment/Plan: Some better. No worsening of respiratory distress with IV fluids so given relative hypotension would continue IV fluids (3) Diabetes mellitus Chronic E11.9 - TYPE 2 DIABETES MELLITUS WITHOUT COMPLICATIONS Qualifiers: Diabetes mellitus type: type 2 Diabetes mellitus complication status: without complication Diabetes mellitus long term acute care registered nurse insulin use: without long term acute care registered nurse use Qualified Code(s): E11.9 - Type 2 diabetes mellitus without complications Comment/Plan: Accu-Cheks and sliding scale insulin. (4) Emphysema lung Acute J43.9 - EMPHYSEMA, UNSPECIFIED Qualifiers: Emphysema type: centrilobular Qualified Code(s): J43.2 - Centrilobular emphysema Comment/Plan: As above for COPD. IV steroids, IV antibiotics and nebulizer treatments. (5) On anticoagulant therapy Acute Z79.01 - DETENTION (CURRENT) USE OF ANTICOAGULANTS Comment/Plan: Patient presently taking Eliquis and is and sinus rhythm. Need his old records he is unable to tell me why he is taking the anticoagulant. Case Care Discussed with: Patient, Nursing Staff, Resource Management Education/Counseling Given To: Patient Education/Counseling Given Regarding: Diagnosis Total Time: 39 MIN Critical Care: No Code: [id number] (12+)
[2016-02-22] MEDS: PROBIOTIC BLEND TAB PO SCH ×2 (11:25→17:28)
[2016-02-22] MEDS: OXYCODONE HCL 5 MG TABLET PO PRN (11:27)
[2016-02-22] MEDS ORDERED: Medication Special Instructions SCH (14:00)
[2016-02-22] MEDS: Aluminum;Magnesium;Simethicone 30 ML UDC PO PRN (17:26)
[2016-02-22] MEDS: CEFTRIAXONE 1 GM in D5W 100 ML IV SCH (19:23)
[2016-02-22] MEDS: METHYLPREDNISOLONE 40 MG/1 ML VIAL IV SCH (19:23)
[2016-02-22] MEDS: TEMAZEPAM 15 MG CAP PO PRN (20:12)
[2016-02-22] MEDS: QUETIAPINE FUMARATE 25 MG TAB PO SCH (20:12)
[2016-02-22] MEDS: AZITHROMYCIN 250 MG TAB PO SCH (20:12)
[2016-02-23] MEDS: Albuterol/Ipratropium Neb 3 ML NEB NEB SCH ×3 (02:50→15:31)
[2016-02-23] MEDS: BENZONATATE 100 MG PERLES PO SCH ×2 (04:45→18:16)
[2016-02-23] MEDS: REGULAR INSULIN 100 UNITS/ML - 3 ML VIAL SQ SCH ×2 (06:37→18:16)
[2016-02-23] MEDS: BUDESONIDE 0.5 MG NEB NEB SCH (08:24)
[2016-02-23] MEDS: METHYLPREDNISOLONE 40 MG/1 ML VIAL IV SCH (08:46)
[2016-02-23] MEDS: ATORVASTATIN 40 MG TAB PO SCH (08:47)
[2016-02-23] MEDS: PROBIOTIC BLEND TAB PO SCH ×2 (08:47→18:16)
[2016-02-23] MEDS: APIXABAN 5 MG TABLET PO SCH (08:47)
[2016-02-23] MEDS: OXYCODONE HCL 5 MG TABLET PO PRN (08:50)
[2016-02-23] MEDS: BISACODYL 10 MG SUPP PR SCH (09:53)
[2016-02-23 11:28] VITALS: BP 100/80; PULSE 102; TEMP 97.9
[2016-02-23] MEDS: ALPRAZOLAM 0.5 MG TAB PO PRN (13:55)
--- NOTE | 2016-02-23 16:42 | PCM.DCS92 ---
- Final/Secondary Discharge Diagnosis (1) COPD with acute lower respiratory infection Acute J44.0 - CHRONIC OBSTRUCTIVE PULMON DISEASE W ACUTE LOWER RESP INFCT Present on Admission: Yes Comment: Slightly better today. Still with some wheezing but this has improved some. Continue IV steroids, IV antibiotics nebulizer treatments. Encourage activity as tolerated. (2) Diastolic CHF Acute I50.30 - UNSPECIFIED DIASTOLIC (CONGESTIVE) HEART FAILURE Present on Admission: Yes chronic I50.32 - Chronic diastolic (congestive) heart failure Comment: Some better. No worsening of respiratory distress with IV fluids so given relative hypotension would continue IV fluids (3) Diabetes mellitus Chronic E11.9 - TYPE 2 DIABETES MELLITUS WITHOUT COMPLICATIONS Present on Admission: Yes type 2 without complication without senior care use E11.9 - Type 2 diabetes mellitus without complications Comment: Accu-Cheks and sliding scale insulin. (4) Emphysema lung Acute J43.9 - EMPHYSEMA, UNSPECIFIED Present on Admission: Yes centrilobular J43.2 - Centrilobular emphysema Comment: As above for COPD. IV steroids, IV antibiotics and nebulizer treatments. 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 Need his old records he is unable to tell me why he is taking the anticoagulant. Discharge Disposition: [facility] Discharge Condition: Stable Cognitive Discharge Status: Unimpaired Fuctional Discharge Status: Walker Assistance Physician Follow up/Referrals: Iker Lacey MD [Primary Care Provider] - F/U Facility Physician New Prescriptions: Azithromycin [Zithromax] 500 mg PO HS #3 tablet Cefdinir [Omnicef] 300 mg PO BID #10 cap Prednisone [Deltasone, Orasone] 10 mg PO BID #20 tab Probiotic Blend [Kayleen Q] 1 tab PO BIDLS #30 tablet Discharge Home Medication List Acetaminophen 650 mg PO Q4H PRN 02/18/16 [History Confirmed 02/23/16 Last Taken 02/20/16] Albuterol/Ipratropium Neb [Duoneb] 3 ml NEB Q6H PRN 02/18/16 [History Confirmed 02/18/16 Last Taken 02/18/16 13:00] Alprazolam 0.5 mg PO Q6H PRN 02/18/16 [History Confirmed 02/23/16 Last Taken 01/26 15:00] Aluminum;Magnesium;Simethicone [Maalox Plus, Mylanta] 30 ml PO Q4H PRN 02/18/16 [History Confirmed 02/18/16 Last Taken 02/12/16 21:19] Apixaban [Eliquis] 5 mg PO BID 02/18/16 [History Confirmed 02/23/16 Last Taken 02/23/16 08:00] Atorvastatin Calcium 40 mg PO DAILY 02/18/16 [History Confirmed 02/23/16 Last Taken 02/23/16 08:00] Bisacodyl 10 mg HI DAILY 02/18/16 [History Confirmed 02/18/16 Last Taken Unknown ] Docusate Sodium 100 mg PO DAILY PRN 02/18/16 [History Confirmed 02/18/16 Last Taken Unknown] Fluticasone/Vilanterol [Breo Ellipta 100-25 Mcg INH] 1 each IH DAILY 02/18/16 [ History Confirmed 02/18/16 Last Taken 02/17/16 22:00] Promethazine HCl 25 mg PO Q6H PRN 02/18/16 [History Confirmed 02/18/16 Last Taken Unknown] Promethazine HCl 25 mg RC Q6H PRN 02/18/16 [History Confirmed 02/18/16 Last Taken Unknown] Quetiapine Fumarate 25 mg PO HS 02/18/16 [History Confirmed 02/23/16 Last Taken 02/22/16 20:00] Albuterol Sulfate [Ventolin Hfa] 2 puff INH Q6H PRN 02/20/16 [History Confirmed 02/20/16 Last Taken Unknown] Guaifenesin [Robitussin] 10 ml PO Q4H PRN 02/20/16 [History Confirmed 02/20/16 Last Taken Unknown] Nitroglycerin [Nitrostat] 0.4 mg SL Q5MX3 PRN 02/20/16 [History Confirmed Last Taken Unknown] Azithromycin [Zithromax] 500 mg PO HS #3 tablet 02/23/16 [Rx Last Taken Unknown] Cefdinir [Omnicef] 300 mg PO BID #10 cap 02/23/16 [Rx Last Taken Unknown] Prednisone [Deltasone, Orasone] 10 mg PO BID #20 tab 02/23/16 [Rx Last Taken Unknown] Probiotic Blend [Kayleen Q] 1 tab PO BIDLS #30 tablet 02/23/16 [Rx Last Taken Unknown] 02/22/16 04:20 02/22/16 04:20 Laboratory Results - last 24 hr 02/22/16 02/23/16 17:19 06:32 POC Capillary Glucose 156 H 121 H O2 Device: Nasal Cannula Diet at Discharge: As Tolerated Activity: As Tolerated - DC Summary Notes Hospital Course Note:: Discharge summary on patient named MILENA ECHAVARRIA admitted to [facility] on 02/18/16 by Roman Villafana MD. Date of discharge is []. Total Time: 40 min Code: 33451 (>30min.) - Physical Exam Vital Signs: Last Vital Signs Temp 97.9 F 02/23/16 14:45 Pulse 102 02/23/16 14:45 Resp 18 02/23/16 14:45 BP 100/80 02/23/16 14:45 Pulse Ox 94 02/23/16 11:27 Oxygen Pulse Oxygen Saturation 94 O2 Device Nasal Cannula Oxygen Flow Rate 3 Fraction of Inspired Oxygen ( FIO2) Constitutional: Alert (Awake, Fully oriented. Normal and appropriate affect.Well appearing. Well nourished.), No apparent distress Oriented to: Person, Place - HEENT Head: Normal (normocephalic, atraumatic.), Other (No cervical lymphadenopathy. No supraclavicular lymphadenopathy. Neck: No palpable mass, supple , trachea midline.) Eye: Normal (pupils equal, reactive to light, and round; EOMI, Sclera white) Oropharynx: Normal (Pharynx: Moist without exudate,Gums-no swelling, No oropharyngeal lesions or erythema, Mucous membranes are dry.) ENT EAC: Normal (No oropharyngeal lesions or erythema. Mucous membranes are dry. ) TMJ: Normal Nose: No Symptoms Reported (septum midline, Nares patent, without discharge or bleeding.) - Respiratory/Cardiovascular Respiratory: Diminished, Rales, Rhonchi, Wheezes - GI Auscultation: Normal (normal active sounds) Palpation: Normal (Soft,non distended,nontender. No hepatosplenomegaly.) Tenderness: Non tender (No rebound or guarding) Estrada's Sign: Negative - Musculoskeletal Back: Normal (Non-Tender) Extremities: Normal (Normal tone, DP pulses 2+ bilaterally, No cyanosis or edema bilaterally, FROM bilaterally.) - Integumentary Skin: Normal (Warm dry no rashes) Lymphatics: Normal (No cervical lymphadenopathy. No supraclavicular lymphadenopathy.). negative: Adenopathy - Neurologic Memory Impaired: Normal Motor Function: Normal (Motor 5/5 throughout.Normal tone, Pulses 2+ No cyanosis or edema, FROM) Cranial Nerve: Normal (CN II-XII intact sensation, strength 5/5) Cerebellar: negative: Ataxia, Past-Pointing, Tremor Mood Description: Normal (Fully oriented. Normal and appropriate affect.) Thought: Coherent Perception: Normal
== END 2016-02-23 20:32 | DRG 191 ==
LOC: ED 17:18 → PCU 19:40
PROVIDERS: ADMIT Internal Medicine; ATTEND Internal Medicine
PROC: 039C3ZZ Drainage of Left Radial Artery, Percutaneous Approach (ICD-10-PCS; principal; 2016-02-18)
DX: J44.0 Chronic obstructive pulmonary disease with (acute) lower respiratory infection (principal); I50.32 Chronic diastolic (congestive) heart failure; Z99.81 Dependence on supplemental oxygen; E11.9 Type 2 diabetes mellitus without complications; Z79.01 Long term (current) use of anticoagulants; Z79.02 Long term (current) use of antithrombotics/antiplatelets; E78.00 Pure hypercholesterolemia, unspecified; Z66 Do not resuscitate; I10 Essential (primary) hypertension; F41.9 Anxiety disorder, unspecified; Z87.891 Personal history of nicotine dependence
CPT/HCPCS: 36415; 36600; 71010; 80048; 80053; 81001; 82043; 82550; 82803; 82962; 83036; 83605; 83880; 84443; 84484; 85007; 85025; 85027; 85610; 85730; 87040; 87086; 93005; 94640; 94660; 96365; 96372; 96375; 97162; 98960; 99283; G0237; J0456; J0696; J1650; J1956; J2060; J2920; J2930; J3490; J7040; J7060; J7070; J7620